=== PATIENT | female | born 1985 | race Two or more races ===

== ENCOUNTER 2021-06-08 15:15 | Inpatient (IN) | payer OTHER ==
[2021-06-08] MEDS ORDERED: OXYTOCIN 30 UNITS in 0.9% NS 30 UNIT/500 ML INFUS.BAG IVPB SCH (16:15)
[2021-06-08 16:18] VITALS: BMI 26.9
[2021-06-08] MEDS ORDERED: OXYTOCIN 30 UNITS in 0.9% NS 30 UNIT/500 ML INFUS.BAG IVPB ONE (16:31)
[2021-06-08] MEDS ORDERED: ELECTROLYTE-148 SOLN 1,000 ML IV SCH (17:45)
[2021-06-08 18:34] LABS: BASO % 0.2 % (0-2.0); EOS % 0.2 % (0-4.5); HEMATOCRIT 31.2 % (32.4-45.2); HEMOGLOBIN 10.7 GM/dL (10.7-15.3); LYMPH % 17.6 % (8-40); MCH 27.3 pg (25.7-33.7); MCHC 34.2 g/dl (32.0-36.0); MEAN CELL VOLUME 79.8 fl (80-96); MEAN PLT VOLUME 8.5 fl (7.5-11.1); MONO % 4.1 % (3.8-10.2); NEUT % 77.9 % (42.8-82.8); PLATELET COUNT 231 10^3/uL (134-434); RBC 3.91 M/mm3 (3.60-5.2); RDW 15.4 % (11.6-15.6); WHITE BLOOD COUNT 9.5 K/mm3 (4.0-10.0)
[2021-06-08 18:40] LABS: INR 1.02 (0.83-1.09); PROTHROMBIN TIME (PATIENT) 11.9 SEC (9.7-13.0)
[2021-06-08 18:43] LABS: ACTIVATED PTT 23.5 SECONDS (25.2-36.5)
[2021-06-08 18:56] LABS: CALCIUM 8.6 mg/dL (8.5-10.1)
[2021-06-08 18:57] LABS: BLOOD UREA NITROGEN 10.8 mg/dL (7-18)
[2021-06-08 19:00] LABS: CREATININE 0.3 mg/dL (0.55-1.3)
[2021-06-08 19:53] LABS: HIV INTERPRETATION NEGATIVE (NEGATIVE)
[2021-06-08] MEDS ORDERED: BUTORPHANOL TARTRATE 1 MG/ML VIAL ONE (21:53)
[2021-06-08] MEDS ORDERED: PROMETHAZINE HCL 25 MG/1 ML VIAL ONE (21:54)
[2021-06-08] MEDS ORDERED: PROMETHAZINE HCL 25 MG/1 ML VIAL IVPB ONE (22:00)
[2021-06-08] MEDS ORDERED: BUTORPHANOL TARTRATE 1 MG/ML VIAL IVPUSH ONE (22:00)
[2021-06-09] MEDS ORDERED: LIDOCAINE HCL 1% PRESERVATIVE FREE - 30ML VIAL ONE (00:05)
[2021-06-09] MEDS ORDERED: BUPIVACAINE HCL/PF 0.25% (2.5MG/ML) 10 ML VIAL ONE (00:17)
[2021-06-09] MEDS ORDERED: METHYLERGONOVINE MALEATE 0.2 MG/1 ML AMP IM PRN (00:44)
[2021-06-09] MEDS ORDERED: BISACODYL 10 MG SUPP.RECT RC PRN (00:44)
[2021-06-09] MEDS ORDERED: BENZOCAINE 20% 57 GM BOTTLE TP PRN (00:44)
[2021-06-09] MEDS ORDERED: oxyCODONE HCL 5 MG TABLET PO PRN (00:44)
[2021-06-09] MEDS ORDERED: WITCH HAZEL 50% (TUCKS) 40 PAD/JAR PAD TP PRN (00:44)
[2021-06-09] MEDS ORDERED: ACETAMINOPHEN 325 MG TABLET (FP) PO PRN (00:44)
[2021-06-09] MEDS ORDERED: BENZOCAINE 28 GM HEMORRHOIDAL OINTMENT TP PRN (00:44)
[2021-06-09] MEDS ORDERED: OXYTOCIN 20 UNITS in 0.9% NS 20 UNIT/1,000 ML INFUS.BAG IV SCH (00:45)
[2021-06-09] MEDS: IBUPROFEN 600 MG TABLET (FP) PO PRN (03:53)
[2021-06-10 08:30] LABS: BASO % 0.3 % (0-2.0); EOS % 0.4 % (0-4.5); HEMATOCRIT 29.3 % (32.4-45.2); HEMOGLOBIN 9.7 GM/dL (10.7-15.3); LYMPH % 15.8 % (8-40); MCH 26.6 pg (25.7-33.7); MCHC 33.2 g/dl (32.0-36.0); MEAN CELL VOLUME 80.3 fl (80-96); MEAN PLT VOLUME 8.5 fl (7.5-11.1); MONO % 5.6 % (3.8-10.2); NEUT % 77.9 % (42.8-82.8); PLATELET COUNT 191 10^3/uL (134-434); RBC 3.65 M/mm3 (3.60-5.2); RDW 15.2 % (11.6-15.6); WHITE BLOOD COUNT 12.7 K/mm3 (4.0-10.0)
[2021-06-10] MEDS: IBUPROFEN 600 MG TABLET (FP) PO PRN ×3 (10:32→21:55)
[2021-06-10] MEDS ORDERED: SENNOSIDES/DOCUSATE COMBO (SENNA PLUS) TABLET (UD) PO PRN (22:00)
[2021-06-11 11:48] VITALS: BP 109/68; PULSE 88; TEMP 98.2
== END 2021-06-11 14:30 | disposition home or self-care (01) | DRG 560 ==
LOC: JLDR 15:15 → J3W 06-09 02:59
PROVIDERS: ADMIT Specialist; ATTEND Specialist
PROC: 10E0XZZ Delivery of Products of Conception, External Approach (ICD-10-PCS; principal; 2021-06-09)
PROC: 0W8NXZZ Division of Female Perineum, External Approach (ICD-10-PCS; 2021-06-09)
DX: O36.5930 Maternal care for other known or suspected poor fetal growth, third trimester, not applicable or unspecified (principal); O28.3 Abnormal ultrasonic finding on antenatal screening of mother; Z3A.38 38 weeks gestation of pregnancy; Z37.0 Single live birth
CPT/HCPCS: 36415; 59409; 80048; 85025; 85610; 85730; 86762; 86780; 86850; 86900; 86901; 87389; C9803; U0003; U0005